=== PATIENT | female | born 1945 | race Caucasian/White ===

== ENCOUNTER 2021-04-08 06:22 | Observation (INO) ==
--- NOTE | 2021-03-20 08:01 | ANES ---
Anesthesia Pre Procedure Eval HOME MEDICATIONS Levothyroxine Sodium [Synthroid] 75 mcg PO DAILY 09/09/17 [Last Taken 09/13/17] levETIRAcetam [Keppra] 500 mg PO DAILY 09/09/17 [Last Taken 09/13/17] ibuprofen 200 mg capsule 400 mg PO TID-QID PRN cap 01/25/21 [Last Taken Unknown] Allergies/Adverse Reactions: Allergies Allergy/AdvReac Type Severity Reaction Status Date / Time Sulfa (Sulfonamide Allergy Unknown A CHILD Verified 03/12/21 08:37 Antibiotics) hydrocodone AdvReac Mild [place] Verified 03/12/21 08:37 [From Panlor "Detached" (hydrocodone-acetamin)] oxycodone AdvReac Mild Nausea/Vomi Verified 03/12/21 08:37 tting Penicillins AdvReac Mild RASH Verified 03/12/21 08:37 prednisone AdvReac Mild vertigo Verified 03/12/21 08:37 - Planned Procedure Planned Procedure: Right Arthroplasty Total Knee Medication List Reviewed:: Yes Allergies Verified: Yes Medical History (Last Reviewed 03/20/21 @ 07:59 by Jed Mendenhall CRNA) COVID-19 vaccine series completed Onset Date: ~01/2021 Chronic eczema Hypothyroidism Seizure disorder Onset Date: Unknown absence seizures, non-convulsive per pt Hx of fracture of leg left leg Wrist fracture, left Onset Date: Unknown fell down stairs Surgical History (Last Reviewed 03/20/21 @ 07:59 by Jed Mendenhall CRNA) History of foot surgery Onset Date: ~09/14/17 Excision of bone spur Right 5th toe, metatarsal head resection metatarsals two and three, correction of bunion left foot by Dr. Diehl at [facility] History of hysterectomy Onset Date: Unknown age 36 History of tonsillectomy and adenoidectomy Onset Date: Unknown age 8 History of wrist replacement Onset Date: Unknown Reconstruction/14 pins and plate after falling down stairs Family History (Last Reviewed 03/20/21 @ 07:59 by Jed Mendenhall CRNA) Father Cancer Mother , age 85 Mitral valve disorder - Family Anesthesia History Family History:: no untoward family reactions to anesthesia, no familial bleeding tendencies, no family history of clotting disorders, no family history of premature - Airway/Neck/Teeth Within Normal Limits:: Yes Teeth Condition: intact Neck Exam: full range of motion Mallampatti Score: 2 Thyromental (T-M) distance: > 6 cm Mandibulo Hyoid distance: > 3 cm - Respiratory Respiratory Physical: lungs clear Smoking Status: Never smoker Sleep Apnea currently treated: No Sleep Apnea by current assessment: No - Cardiovascular Tolerate Activity: Fair Heart Sounds: S1 & S2, Regular - Anesthesia Assessment and Plan ASA Class: PS, II Anesthesia Type Plan: Block - adductor canal block for post op pain reief, Spinal
[~2021-04-08 06:22] MED LIST: MORPHINE SULFATE 15 MG TABLET.SA PO PRN; ROPIVACAINE/CLONIDIN/KETOROLAC 50 ML SYRINGE IJ PRN; TRANEXAMIC ACID IN NACL,ISO-OS 1,000 MG/100 ML BAG IV PRN; ceFAZolin SODIUM 1 GM VIAL IV PRN
[2021-04-08] MEDS: RINGER'S SOLUTION,LACTATED 1,000 ML IV PRN ×3 (06:43→10:19)
[2021-04-08] MEDS ORDERED: ceFAZolin SODIUM 1 GM VIAL ONE (06:57)
[2021-04-08] MEDS ORDERED: ISOPROPYL ALCOHOL 480 APPL BTL MC ONE (06:58)
[2021-04-08] MEDS ORDERED: ROPIVACAINE/CLONIDIN/KETOROLAC 50 ML SYRINGE IJ ONE (06:58)
[2021-04-08] MEDS ORDERED: LIDOCAINE HCL 20 ML VIAL ONE (07:26)
[2021-04-08] MEDS ORDERED: ONDANSETRON HCL/PF 2 MG/ML VIAL ONE (07:26)
[2021-04-08] MEDS ORDERED: fentaNYL CITRATE/PF 50 MCG/ML AMPUL ONE (07:26)
[2021-04-08] MEDS ORDERED: BUPIVACAINE HCL/EPINEPHRINE 50 ML VIAL ONE (07:26)
[2021-04-08] MEDS ORDERED: PROPOFOL VIAL IV ONE (07:27)
[2021-04-08] MEDS ORDERED: HYDROmorphone HCL 2 MG/ML VIAL IV PRN (08:17)
[2021-04-08] MEDS ORDERED: NALOXONE HCL 0.4 MG/ML VIAL IV PRN (08:17)
[2021-04-08] MEDS ORDERED: PROCHLORPERAZINE EDISYLATE 5 MG/ML VIAL IV PRN (08:17)
[2021-04-08] MEDS ORDERED: diphenhydrAMINE HCL 50 MG/ML VIAL IV PRN ×2 (08:17→09:45)
[2021-04-08] MEDS ORDERED: MORPHINE SULFATE 2 MG/ML DISP.SYRIN IV PRN (09:45)
[2021-04-08] MEDS ORDERED: DEXTROSE 5%-LACTATED RINGERS 1,000 ML IV PRN (09:45)
[2021-04-08] MEDS ORDERED: MAGNESIUM HYDROXIDE 30 ML UDC PO PRN (09:45)
[2021-04-08] MEDS ORDERED: MAG HYDROX/ALUMINUM HYD/SIMETH 30 ML UDC PO PRN (09:45)
[2021-04-08] MEDS ORDERED: ZOLPIDEM TARTRATE 5 MG TABLET PO PRN (09:45)
[2021-04-08] MEDS ORDERED: ONDANSETRON HCL/PF 2 MG/ML VIAL IV PRN (09:45)
--- NOTE | 2021-04-08 09:45 | OR ---
Operative Report - Dictated Report Narrative: Date: 04/08/2021 Preoperative diagnosis: Right knee degenerative joint disease. Postoperative diagnosis: Right knee degenerative joint disease. Procedure: Right total knee arthroplasty. Surgeon: Juan Antonio Turcios M.D. Scrap Drop Crane Operator: John Salazar PA-C (provided and essential set of skilled, educated hands that assisted with transfer, positioning, prepping, draping, manipulation, retraction, placement of jigs, injection, insertion of implants, irrigation, closure wounds, and dressings all of which could not be performed by the available surgical crew) Anesthesia: Spinal with regional block and local periarticular joint injection. Complications: None Specimens: Bone. Estimated blood loss: Minimal. Tourniquet time: 75 minutes at 325 millimeters of mercury. Retained implants: Depuy Attune size 4 right lugged cemented posterior stabilized femoral component. Size 4 fixed-bearing cemented tibial platform. 4 by 5 millimeter posterior stabilized cross-linked tibial insert. 38 millimeter medialized patella button. Indications: Mrs. Todd is a 75-year-old female who has had longstanding right knee pain and arthrosis. This patient was followed in my clinic for period of time with significant complaints of right knee pain consistent with arthritic changes. She had failed conservative measures including, but not limited to, activity modification, passage of time, medications, and other conservative measures. Patient wished to proceed with surgical treatment. The risks, benefits, and alternatives were discussed in clinic. The risks of , blood clots, bleeding, infection, nerve/tendon blood vessel/ injury, malposition of components, intraoperative fracture, postoperative limited range of motion, persistent pain, failure of components, and need for additional procedures. Patient wished to proceed consent was obtained after answering all questions. Procedure: After marking the correct extremity on the floor, the patient was taken to the operating room. A timeout was performed. IV antibiotics consisting of Ancef were administered prior to the procedure. A regional followed by spinal anesthetic was induced by anesthesia, per my request, on the operative table with all bony prominences well-padded. Merchant catheter was placed, and a bump was placed under the operative side buttock. SCDs and NATY hose were utilized on the nonoperative leg. A well-padded tourniquet was applied to the operative thigh. The operative leg was then pre-scrubbed with alcohol, prepped, and draped in a standard sterile fashion. After exsanguinating the extremity with an Esmarch bandage, the tourniquet was inflated. After marking out the anterior knee for standard incision centered over the patella, the skin was incised and dissected down to the joint retinaculum. The joint retinaculum was marked out as well as the horizontal axis of the patella, and a standard medial parapatellar arthrotomy was then made. The most proximal aspect of the quadriceps tendon and the patella tendon insertion were protected from release. A partial synovectomy was performed as well as a resection of the infrapatellar fat pad. The distal femoral fat pad proximal to the trochlea was also resected using cautery. The soft tissues were elevated off the medial aspect of the proximal tibia using a Isabel elevator ensuring that we did not transect the medial collateral ligament. Upon initial evaluation range of motion was approximately 0 degrees to 130 degrees of flexion. There were signs of advanced arthrosis in the medial and patellofemoral greater than lateral joint spaces. There were large marginal osteophytes which were removed with a rongeur. The knee was hyperflexed and the patella was tucked laterally. Protecting the surrounding soft tissues with Homans, an entry drill was placed down the femoral canal using Whitesides line for guidance into the entry point. The intramedullary femoral alignment lakesha was utilized in order to cut the distal femur in 5 degrees of valgus resecting 10 millimeters of bone. Next the distal femur was sized to a size 4. A posterior referencing guide was utilized to place the distal femoral cutting block in 3 degrees of external rotation. This was pinned into place. The rotation was confirmed both visually and based on anatomic landmarks. The 4 in 1 cutting jig of the appropriate size was utilized in order to make all bony cuts. The fern wing was used to ensure no notching. Retractors were utilized in order to protect surrounding soft tissues. This cut did not result in any excessive notching. We then cut the box centered over the distal femur. This allowed for resection of the anterior and posterior cruciate ligaments. I then turned my attention to the preparation of the tibia. Using an extra medullary tibial alignment lakesha, 3 millimeters of bone was resected off the medial articular surface. This was made perpendicular to the mechanical axis of the joint with the alignment lakesha centered over the ankle mortise. The alignment lakesha was checked and was noted to be parallel to the mechanical axis, centered over the medial one third of the tibial tubercle, paralleling the anterior surface of the tibia. We then turned our attention to the remaining meniscus and soft tissues. These were removed while protecting the surrounding ligaments and soft tissues. The marginal osteophytes off the anterior, posterior, medial, lateral aspects of the femur and tibia were removed. The tibia was sized out to a size 4. Next the tibia was drilled and punched in an externally rotated position. Next the trial femur and a series of tibial inserts were utilized in order to allow for full extension and maximal flexion. It was found that a 5 millimeter insert gave the best range of motion and stability at multiple flexion points as well as at full extension there was less than 2 mm of gapping both medially and laterally. There is minimal anterior translation with the knee at 90 degrees of flexion and no signs of being able to dislocate the knee. The patella was then prepared. The initial thickness was 20 millimeters. This was reamed down to 12 millimeters parallel to the anterior surface of the patella. It was sized out to a size 38 medialized patella button. This was then drilled and trialed. Without any medial restraint the patella tracked appropriately and did not sublux or dislocate. At this point, it was felt these were the appropriate sized implants, and all trials were removed. The standard periarticular joint injection consisting of ropivacaine, Toradol, and epinephrine were injected into the periarticular joint tissues. The bony surfaces were thoroughly irrigated with a pulsatile-suction saline irrigation device. A bone plug from the prior resected anterior chamfer cut was placed into the drill hole at the distal femur. The bony surfaces were then dried in preparation for placement of the implants. The cement was vacuum mixed per the medical reception's instructions. The cement was placed on the dry bony surfaces and posterior aspect of the implants. The implants were impacted into place, removing all extruded cement. At this point anesthesia administered tranexamic acid per protocol intravenously. The knee was placed in extension with axial loading with the trial insert while the cement cured. Once the cement cured, all remaining extruded cement was removed. The knee was placed through a range of motion with the trial insert to ensure appropriate range of motion and stability. Final range of motion was approximately 0 to 130 degrees. The knee was again thoroughly irrigated with pulsatile saline lavage. The final polyethylene insert was then impacted into place ensuring no retained soft tissues. The remaining periarticular joint injection was injected. A medium Hemovac drain was placed exiting superior laterally. The knee was then placed over a triangle and the arthrotomy was closed with interrupted #1 Vicryl after thoroughly irrigating the joint. The deep and subcutaneous tissues were closed with interrupted 0 and 3-0 Vicryl respectively. Skin was closed with a running subcutaneous 3-0 Monocryl and Prineo Dermabond dressing. 4 x 4's, Sof-Rol, and a full leg Ced wrap were applied. All sponge, needle, blade, and instrument counts were correct prior to closing the wounds. Postoperative condition: The patient was awoken and transferred to the postanesthesia care unit in stable condition. Plan is to be admitted to the inpatient medical/surgical floor postoperatively for 24 hours of IV antibiotics, physical therapy, occupational therapy, and medical comanagement. Patient will be weightbearing as tolerated with range of motion as tolerated. DVT prophylaxis will be with SCDs, NATY hose, and pharmacological anticoagulation. Anticipated hospital stay is approximately 1-3 days.
--- NOTE | 2021-04-08 10:57 | ANES ---
Post Anesthesia Discharge - Transfer of Care Transfer of Care handoff given to nurse: Yes - Discharge from PACU Discharge from PACU when meets criteria: Yes - Discharge to ASU Discharge to ASU-no complications/pt stable: Yes
--- NOTE | 2021-04-08 10:59 | ANES ---
Anesthesia Procedure Note Procedure Note: ANESTHESIA PROCEDURE NOTE Date of Procedure: 04/08/2021. Time of procedure: 809. Performed by: Ubaldo Giraldo CRNA Associate Merchandise Planner: None. Preprocedure diagnosis: Right knee degenerative joint disease. Post procedure diagnosis: Same. Procedure: Right ultrasound guided adductor canal block for postoperative analgesia. Indications: The patient is a 75-year-old female, requesting right ultrasound- guided abductor canal nerve block for postoperative analgesia related to right total hip arthroplasty. Findings: See below. Details of the procedure: The tissue over the intended target site was cleansed with ChloraPrepand draped in a sterile fashion. 2 ml Lidocaine 1 % was infiltrated to the skin and subcutaneous tissue at the intended target site. Under sterile technique and ultrasound guidance a 20-gauge block needle was inserted through the right sartorius muscle to the saphenous nerve just anterior and medial to the superficial femoral artery and vein. 15 mL's of 0.5% bupivacaine plus epinephrine 1-200,000 was injected after negative aspiration for blood. Needle tip and spread of local anesthetic surrounding the saphenous nerve was observed throughout the injection with real time ultrasound visualization. The needle was then removed intact. No complications were noted. The images were retained in the Hospital medical database. EBL: Minimal. Fluids: N/A. Specimen: N/A. Post procedure condition: The patient tolerated the procedure well. No complications were noted. Thank you for this consultation. Ubaldo Giraldo CRNA
--- NOTE | 2021-04-08 11:00 | ANES ---
Post Anesthesia Assessment - Vital Signs Vitals: Last Vital Signs Temp 36.6 C 04/08/21 10:30 Pulse 85 04/08/21 10:30 Resp 12 04/08/21 10:30 BP 138/64 04/08/21 10:30 Pulse Ox 95 04/08/21 10:30 Airway Patency: Normal - Mental Status Level Of Consciousness: Awake - Pain Level Pain Score: 0 - N/V Assessment Nausea/Vomiting Presence: None Dehydration:: No
[2021-04-08] MEDS: ceFAZolin SODIUM 1 GM in DEXTROSE 5 % IN WATER 100 ML IV SCH ×6 (11:01→23:15)
[2021-04-08] MEDS: KETOROLAC TROMETHAMINE 15 MG/ML VIAL IV SCH ×3 (11:01→20:46)
[2021-04-08] MEDS: ACETAMINOPHEN 500 MG TABLET PO PRN (11:36)
[2021-04-08] MEDS: OXYBUTYNIN CHLORIDE 5 MG TABLET PO SCH ×2 (12:32→17:00)
[2021-04-08] MEDS: MORPHINE SULFATE 10 MG/0.5 ML SYRINGE PO PRN ×2 (15:38→23:14)
[2021-04-08] MEDS: ASPIRIN 81 MG TABLET.DR PO SCH (20:25)
[2021-04-08] MEDS: MORPHINE SULFATE 15 MG TABLET.SA PO SCH (20:25)
[2021-04-08] MEDS ORDERED: SENNOSIDES/DOCUSATE SODIUM 1 TAB TABLET PO SCH (21:00)
[2021-04-08] MEDS: levETIRAcetam 500 MG TABLET PO SCH (23:17)
[2021-04-09] MEDS: ACETAMINOPHEN 500 MG TABLET PO PRN ×2 (04:42→11:54)
[2021-04-09] MEDS: KETOROLAC TROMETHAMINE 15 MG/ML VIAL IV SCH ×2 (04:42→09:24)
[2021-04-09 06:23] LABS: Hematocrit 37.3 % (37.0-47.0); Hemoglobin 11.6 gm/dL (12.5-16.0); Mean Corpuscular Hemoglobin 28.3 pg (27-31); Mean Corpuscular Hgb Conc 31.1 g/dl (32-36); Mean Platelet Volume 10.2 fl (8-12.5); Platelet Count 207 K/mm3 (150-450); Red Cell Distribution Width 14.4 % (11.5-14.0); White Blood Count 9.4 K/mm3 (4.0-10.5)
[2021-04-09 06:30] LABS: Anion Gap 10.2 mmol/L (6.8-13.8); BUN/Creatinine Ratio 15.6 (9.0-21.6); Calcium * 8.3 mg/dL (7.9-10.9); Estimated Creat Clear 46.2; Potassium 4.2 mmol/L (3.4-4.6)
[2021-04-09] MEDS ORDERED: LEVOTHYROXINE SODIUM 88 MCG TABLET PO SCH (07:00)
[2021-04-09] MEDS: levETIRAcetam 500 MG TABLET PO SCH (09:15)
[2021-04-09] MEDS: ASPIRIN 81 MG TABLET.DR PO SCH (09:24)
[2021-04-09] MEDS: OXYBUTYNIN CHLORIDE 5 MG TABLET PO SCH ×2 (09:24→13:38)
[2021-04-09] MEDS: MORPHINE SULFATE 15 MG TABLET.SA PO SCH (09:24)
--- NOTE | 2021-04-09 14:51 | DS ---
(1) Seizure disorder Problem: Chronic (2) Hypothyroid Problem: Chronic (3) Urinary incontinence Problem: Chronic (4) Status post right knee replacement Problem: Acute Date of Discharge:: 04/09/21 Hospital Course: Mrs. Todd was admitted to the floor after undergoing right total knee arthroplasty. Tolerated this well. Was admitted to the floor postoperatively for 24 hours of IV antibiotics, pain control, medical comanagement, and occupational and physical therapy. OT and PT were consulted to assist with activities of daily living and ambulation. Was made weightbearing as tolerated with range of motion as tolerated. Pain was initially controlled with IV regimen. This was transitioned to oral once tolerating a by mouth intake. Was resumed on home diet and medications. A Merchant catheter was inserted in the operating room which was discontinued by postoperative day 1. A drain was placed intraoperatively into the knee which was discontinued on postoperative day 1. Aspirin, SCDs, and NATY hose were utilized for DVT prophylaxis. She did have some chest pain which was worked up with troponin which was negative as well as an EKG which was unremarkable for any acute pathology. This resolved spontaneously. Vital signs remained stable to the hospital course. Labs were obtained which showed a final hemoglobin of 11.6 grams. BMP was reviewed and was stable. Physical examination throughout the hospital course showed an extremity that had sensation that was intact to light touch, palpable pulses, a benign wound, motor intact to the toes, ankle, and knee. Knee range of motion was approximately 5 degrees to 60 degrees. Once an oral pain regimen was tolerated and physical therapy goals were met, it was felt that they were stable for discharge to home. She is having home health care and will be confined to the home due to their recent right total knee arthroplasty perfomed during this hospitalization. This causes increased difficulty leaving the home. The need for custodial is to monitor medications, monitor the incision over the joint, to assist with dressing changes, and to educate on performing these duties with assistance. The need for physical therapy is to assist with strengthening, mobility, ambulation, and range of motion of the affected extremity. The need for home health skilled services is directly related to the time spent [id number] with her today on 04/09/2021. Instructions: Continue with weightbearing as tolerated and range of motion as tolerated. It is okay to shower and get the wound wet as long as there is no drainage from the wound. Do not bathe or soak the wound. If there is any drainage from the wound keep the wound clean and dry and cover with dry gauze and tape. Change every 2- 3 days as needed if there is any drainage. Cover wound while showering if there is any drainage. Continue with physical therapy. Resume home diet. Report any fever over 101.5 Fahrenheit, uncontrolled pain, increased drainage, foul odor of drainage, new or increased calf pain or shortness of breath, or any other significant complaints. Continue with NATY hose on the operative extremity until instructed otherwise. No driving until instructed otherwise. Follow up in approximately 2-3 weeks. Procedures Performed: see notes below List Procedures: Right total knee arthroplasty Results and Findings: Lab Pending Results 03/20/21 06:52: WBC Cancelled, Corrected WBC (auto) Cancelled, RBC Cancelled, Hgb Cancelled, Hct Cancelled, MCV Cancelled, MCH Cancelled, MCHC Cancelled, RDW Cancelled, Plt Count Cancelled, MPV Cancelled, Immature Gran % (Auto) Cancelled, Immature Gran # (Auto) Cancelled, Neutrophils % Cancelled, Lymphocytes % Cancelled, Monocytes % Cancelled, Eosinophils % Cancelled, Basophils % Cancelled, Nucleated RBC % Cancelled, Neutrophils # Cancelled, Lymphocytes # Cancelled, Monocytes # Cancelled, Eosinophils # Cancelled, Absolute Basophils Cancelled 03/20/21 06:52: Sodium Cancelled, Plasma Sodium Cancelled, Potassium Cancelled, Chloride Cancelled, Carbon Dioxide Cancelled, Anion Gap Cancelled, BUN Cancelled, Creatinine Cancelled, Est GFR (Non-Af Amer) Cancelled, BUN/Creatinine Ratio Cancelled, Random Glucose Cancelled, Calcium Cancelled 04/09/21 06:11: WBC 9.4, RBC 4.10 L, Hgb 11.6 L, Hct 37.3, MCV 91.0, MCH 28.3, MCHC 31.1 L, RDW 14.4 H, Plt Count 207, MPV 10.2 04/09/21 06:11: Sodium 139, Plasma Sodium 139, Potassium 4.2, Chloride 105, Carbon Dioxide 28.0, Anion Gap 10.2, BUN 15, Creatinine 0.96, Est GFR (Non-Af Amer) 60, BUN/Creatinine Ratio 15.6, Random Glucose 95, Calcium 8.3 04/09/21 08:45: Troponin I Less than 0.017 Disposition: Home Health Service Condition: Good Face to Face Encounter completed per [facility] Guidelines: Yes Discharge Activity: Activity as tolerated, Weight bearing Discharge Diet: General/regular food Additional Patient Instructions (free text): Pt wanting Home Health at discharge. Please call and fax discharge information to [facility]. Follow up [facility] Orthopedic office appointment on ThursdayApril 26 at 9:00am. Prescriptions (Any new or edited meds): Aspirin [Aspirin Enteric Coated] 81 mg PO BID #90 tablet. Morphine Sulfate 1 - 2 tab PO Q4H PRN #50 tab PRN Reason: Pain Transmission Status: Received by [facility], [place], [place] Morphine Sulfate [Ms Contin] 15 mg PO Q12H #10 tablet.sa Transmission Status: Received by [facility], [place], [place] Sennosides/Docusate Sodium [Senokot-S] 2 tab PO HS #60 tab Complete Home Medications List: Complete Home Medication List: levETIRAcetam [Keppra] 500 mg PO DAILY 09/09/17 ibuprofen 200 mg capsule 400 mg PO TID-QID PRN cap 01/25/21 Levothyroxine Sodium [Synthroid] 88 mcg PO DAILY 03/20/21 Oxybutynin Chloride [Ditropan] 5 mg PO TID 03/20/21 Aspirin [Aspirin Enteric Coated] 81 mg PO BID #90 tablet. 04/09/21 Morphine Sulfate 1 - 2 tab PO Q4H PRN #50 tab 04/09/21 Morphine Sulfate [Ms Contin] 15 mg PO Q12H #10 tablet. 04/09/21 Sennosides/Docusate Sodium [Senokot-S] 2 tab PO HS #60 tab 04/09/21 Amb Orders for Discharge: PT Evaluation and Treatment* Facility: [facility], Location: Rehabilitation Services Forms: Patient Portal Registration
[2021-04-09 15:00] VITALS: BP 141/66
== END 2021-04-09 16:00 | disposition home health service (06) ==
LOC: MS 06:22 → SUR 06:22
PROVIDERS: ADMIT Orthopaedic Surgery; ATTEND Orthopaedic Surgery
DX: M17.11 Unilateral primary osteoarthritis, right knee